=== PATIENT | female | born 1955 | race Caucasian/White ===

== ENCOUNTER 2020-02-22 22:24 | Inpatient (IN) | payer MEDICARE ==
[~2020-02-22] VITALS: Ht 165.1 cm; Wt 95.3 kg
[2020-02-22] MEDS ORDERED: LIPITOR10 MG PO (22:37)
[2020-02-22] MEDS ORDERED: LASIX20 MG (22:37)
[2020-02-22] MEDS ORDERED: PACERONE100 MG (22:37)
[2020-02-22] MEDS ORDERED: METFORMIN HCL500 M1 PO (22:38)
[2020-02-22] MEDS ORDERED: PROTONIX40 MG PO (22:38)
[2020-02-22 23:34] LABS: BASOPHILS 0.1 % (0-2); EOSINOPHILS 0 % (0-7); HEMOGLOBIN 8.9 g/dL (12-16); IMMATURE GRANULOCYTES 0.3 % (0-5); LYMPHOCYTES 3.1 % (15-50); MCH 27.8 pg (26.0-34.0); MCHC 30.7 g/dL (31.0-37.0); MCV 90.6 fL (80.0-100.0); MEAN PLATELET VOLUME 9.3 fL (7.4-10.4); MONOCYTES 2.9 % (2-11); NEUTROPHILS 93.6 % (40-80); PLATELET COUNT 286 10x3/uL (130-400); RDW 15.4 % (11.5-14.5); WBC 12.4 10x3/uL (4.8-10.8)
[2020-02-22 23:43] LABS: APTT 44.7 SECONDS (22.8-39.4); INR 1.44 (0.85-1.17); PROTIME 17.4 SECONDS (11.6-15.0)
[2020-02-23] VITALS (36 sets, daily range): BP systolic 83–147; BP diastolic 48–92; BMI 35.0
[2020-02-23 00:04] LABS: ALBUMIN 2.7 g/dL (3.4-5.0); ALKALINE PHOSPHATASE 65 U/L (30-120); ALT (SGPT) 295 U/L (10-68); BILIRUBIN - TOTAL 0.67 mg/dL (0.2-1.3); CALC OSMOLALITY 295 mosm/kg (275-300); CALCIUM 8.5 mg/dL (8.5-10.1); CARBON DIOXIDE 22.6 mmol/L (21.0-32.0); CHLORIDE - SERUM 99 mmol/L (98-107); CREATINE KINASE 105 UL (21-215); GLUCOSE 427 mg/dL (74-106); POTASSIUM - SERUM 3.8 mmol/L (3.5-5.1); PRO BNP 24477 pg/mL (0-125); PROTEIN - SERUM 7.5 g/dL (6.4-8.2); SODIUM 133 mmol/L (136-145); UREA NITROGEN 45 mg/dL (7-18); eGFR NON AFRICAN AMERICAN 27 mL/min (90-120)
[2020-02-23 00:05] LABS: TROPONIN-I 0.522 ng/mL (0.000-0.060)
--- NOTE | 2020-02-23 00:35 | NUR ---
PT INTUBATED AT THIS TIME. 7.5 ET TUBE, 23 AT THE LIP PT TOLERATED WELL. SEE EMAR.
--- NOTE | 2020-02-23 01:00 | NUR ---
PT RESTRAINED PER PROTOCOL SEE PAPER FORM.
[2020-02-23 02:29] LABS: BASOPHILS 0 % (0-2); EOSINOPHILS 0 % (0-7); HEMATOCRIT 29.1 % (36.0-48.0); IMMATURE GRANULOCYTES 0.3 % (0-5); LYMPHOCYTES 4.9 % (15-50); MCH 27.9 pg (26.0-34.0); MCHC 30.9 g/dL (31.0-37.0); MCV 90.1 fL (80.0-100.0); MONOCYTES 5.2 % (2-11); NEUTROPHILS 89.6 % (40-80); PLATELET COUNT 275 10x3/uL (130-400); RBC 3.23 10x6/uL (4.00-5.40); RDW 15.4 % (11.5-14.5); WBC 14.6 10x3/uL (4.8-10.8)
[2020-02-23 02:53] LABS: CKMB 4.3 U/L (0.0-3.6); CREATINE KINASE 133 UL (21-215)
[2020-02-23 02:56] LABS: TROPONIN-I 1.446 ng/mL (0.000-0.060)
--- NOTE | 2020-02-23 03:00 | NUR ---
PT ARRIVED VIA STRETHER WITH ADVANCED CLINICAL SPECIALIST AND RT. PT IS INTUBATED AND SEDATED. SHE WAS MOVED OVER SAFELY TO BED. VS ARE STABLE AT THIS TIME. PT RESTRAINTS ARE OBSERVED WITH BILAT HANDS PINK AND WARM. ALVAREZ OBSERVED HUNG BELOW BLADDER ADN DRAINING. LEVOPHED IS GOING AT 5MCG/MIN UPON ARRIVAL. PT REPONDS TO TOUCH AND VOICE AND RESONDS TO PAIN. FULL ASSESSMENT PERFORMED AND WILL DOC IN FLOWSHEET. HOB IS AT 35 DEGREES AND I ELEVATED HEELS OFF OF BED. BED IS LOW,SIDE RASILX2, BED ALARM ON AND CALL LIGHT WITHIN REACH. WILL CONINTUE TO MONITOR
--- NOTE | 2020-02-23 05:00 | NUR ---
PT IS RESTING IN BED AT THIS TIME MOVING AROUND. WILL INCREASE DIPRIVAN TO 10. VSS. RESTRAINTS OBVERSED. BED ISLOW,SIDE RAILSX2,CALL LGITH WITHIN REACH. WILL CONITNUE TO MONITOR
--- NOTE | 2020-02-23 07:00 | NUR ---
BEDSIDE REPORT RECEIVED. SHIFT ASSESSMENT COMPLETED PER FLOWSHEET, SEE FLOWSHEET FOR INFORMATION. PT INTUBATED AND SEDATED. BLOOD SUGAR 404, 12 UNITS OF INSULIN GIVEN, CALLED AND SPOKE WITH BANDAR GILLILAND, BOTH STATED JUST RECHECK IN AN HOUR. VSS. WILL CONT TO MONITOR.
--- NOTE | 2020-02-23 09:00 | NUR ---
PT INTUBATED AND SEDATED. NO ACUTE NEEDS OR DISTRESS NOTED AT THIS TIME. VSS. WILL CONT TO MONITOR.
--- NOTE | 2020-02-23 09:59 | NUR ---
SPOKE WITH ERICA PETERSON, SOME HISTORY RECEIVED, ERICA DOES NOT KNOW MUCH ABOUT HER MEDICAL HISTORY. UPDATE GIVEN. WILL CONT TO MONITOR.
--- NOTE | 2020-02-23 11:00 | NUR ---
REASSESSMENT COMPLETED PER FLOWSHEET, SEE FLOWSHEET FOR INFORMATION. PT RESTING IN BED INTUBATE AND SEDATED. VSS. ORAL CARE GIVEN PER COMFORT. WILL CONT TO MONITOR.
--- NOTE | 2020-02-23 13:00 | NUR ---
AT BEDSIDE, OGT PLACED PER . NEW ORDERS RECEIVED. STATES THAT PT GRABBED HIS HAND AND TRIED TO PULL HIM AWAY. CHANGED SEDATION TO FENTANYL AND VERSED. WILL CONT TO MONITOR.
--- NOTE | 2020-02-23 15:00 | NUR ---
REASSESSMENT COMPLETED PER FLOWSHEET, SEE FLOWSHEET FOR INFORMATION. PT RESTING IN BED INTUBATED AND SEDATED. VSS. WILL CONT TO MONITOR.
[2020-02-23 16:30] LABS: BILIRUBIN NEGATIVE (NEGATIVE); GLUCOSE 100 mg/dL (NEGATIVE); KETONE NEGATIVE (NEGATIVE); NITRITE NEGATIVE (NEGATIVE); UROBILINOGEN NORMAL (NORMAL)
--- NOTE | 2020-02-23 16:35 | NUR ---
MOIRA GA COLLECTED RESPIRATORY CULTURE. I COLLECTED A URINE SAMPLE FROM ALVAREZ. VSS. WILL CONT TO MONITOR.
[2020-02-23 16:37] LABS: CREATININE - URINE 159.2 mg/dL (30-125); PRO/CRE RATIO URINE 0.6 mg/g; PROTEIN - URINE 95.1 mg/dL (0.0-11.9)
--- NOTE | 2020-02-23 17:00 | NUR ---
PT RESTING INTUBATED AND SEDATED IN BED. PT RESTING IN BED, NO ACUTE NEEDS OR DISTRESS NOTED AT THIS TIME. VSS. WILL CONT TO MONITOR.
--- NOTE | 2020-02-23 20:19 | NUR ---
right eye started to bleed when patient was being bathed. cleaned off. sclera appeares to be yellow.
[2020-02-24] VITALS (22 sets, daily range): BP systolic 112–146; BP diastolic 68–85; Ht 165.1 cm; Wt 95.3 kg
[2020-02-24 05:34] LABS: INR 1.31 (0.85-1.17); PROTIME 16.2 SECONDS (11.6-15.0)
[2020-02-24 05:42] LABS: APTT 33.7 SECONDS (22.8-39.4)
[2020-02-24 05:43] LABS: D-DIMER-QUANTITATIVE 2.58 ug/mLFEU (0.20-0.54)
[2020-02-24 06:01] LABS: ALBUMIN 2.2 g/dL (3.4-5.0); ANION GAP 12.5 mmol/L (8-16); BASOPHILS 0 % (0-2); BILIRUBIN - TOTAL 0.64 mg/dL (0.2-1.3); CALCIUM 8.1 mg/dL (8.5-10.1); CARBON DIOXIDE 22.2 mmol/L (21.0-32.0); EOSINOPHILS 0 % (0-7); HEMATOCRIT 27.4 % (36.0-48.0); HEMOGLOBIN 8.4 g/dL (12-16); IMMATURE GRANULOCYTES 0.2 % (0-5); LYMPHOCYTES 2.8 % (15-50); MAGNESIUM - SERUM 1.7 mg/dL (1.8-2.4); MCH 27.6 pg (26.0-34.0); MCHC 30.7 g/dL (31.0-37.0); MCV 90.1 fL (80.0-100.0); MEAN PLATELET VOLUME 9.2 fL (7.4-10.4); MONOCYTES 2.8 % (2-11); NEUTROPHILS 94.2 % (40-80); PHOSPHOROUS 2.5 mg/dL (2.5-4.9); PLATELET COUNT 274 10x3/uL (130-400); POTASSIUM - SERUM 3.7 mmol/L (3.5-5.1); RBC 3.04 10x6/uL (4.00-5.40); RDW 15.7 % (11.5-14.5); VANCOMYCIN - RANDOM 16.6 ug/mL (10.0-20.0); WBC 12.1 10x3/uL (4.8-10.8)
[2020-02-24 06:03] LABS: CREATININE - SERUM 1.2 mg/dL (0.6-1.3); TROPONIN-I 1.067 ng/mL (0.000-0.060)
--- NOTE | 2020-02-24 07:00 | NUR ---
ASSESSMENT COMPLETE PER FLOWSHEET. IN ISOLATION FOR PUI.
--- NOTE | 2020-02-24 07:51 | NUR ---
DR ENWELL CONSULTED.
--- NOTE | 2020-02-24 09:00 | NUR ---
CONT TO MONITOR.
--- NOTE | 2020-02-24 11:00 | NUR ---
REASSESSED. CONT TO INTUBATE 40 PERCENT.
--- NOTE | 2020-02-24 15:00 | NUR ---
REASSESSED. FIO2 CONTINUED AT 40 PERCENT.
--- NOTE | 2020-02-24 17:00 | NUR ---
NO CHANGES NOTED. SR UP X 2. CALL LIGHT WITHIN REACH. CONTINUE TO MONITOR.
--- NOTE | 2020-02-24 19:13 | MORECARE ---
CASE MANAGEMENT DISCHARGE SUMMARY PATIENT: LEANDRA RESENDIZ UNIT: [id number] ADM DATE: 02/23/20 AGE: 64 : 57 SEX: F ROOM/BED: D.2312 AUTHOR: KAYLEIGH LERMA PHYSICIAN: REFERRING PHYSICIAN: LIV CONNER MD DATE OF SERVICE: 02/24/20 Discharge Plan Patient Name: LEANDRA RESENDIZ [facility] [facility] 1955 Planned Disposition: Anticipated Discharge Date: Discharge Date: Expected LOS: Initial Reviewer: [email or web address] Initial Review Date: 02/23/2020 Generated: 02/24/20 8:12 pm Comments DCP- Discharge Planning Updated by [email or web address]: Rhona Sauer on 02/24/20 6:[address] CM attempted to visit with patient regarding discharge planning. Patient is currently on the vent and no family available at this time. CM will try to contact family/ contact via phone for discharge plan. CM will continue to follow and assist as needed with discharge planning / needs. Patient Name: LEANDRA RESENDIZ Page [id number] at 1913 All edits/amendments must be made on the electronic document DICTATION DATE: 02/24/201911 LOG SAWYER: CONRAD 02/24/201911 RPT#: [id number] DC DATE: STATUS: ADM IN [facility] [address] [place] [address] END OF REPORT
--- NOTE | 2020-02-24 20:30 | NUR ---
chg bath given. linen change. sunctioned. turned. hr 50's. turned down propofol to 30. will continue to monitor
[2020-02-25] VITALS (24 sets, daily range): BP systolic 125–149; BP diastolic 71–106
--- NOTE | 2020-02-25 00:12 | NUR ---
2300- patient intubated sedated. see adl see reassesment. no new changes.
--- NOTE | 2020-02-25 01:41 | NUR ---
respiratory at bedside. no acute distress. light turned off. vital signs stable. will continue to monitor
--- NOTE | 2020-02-25 04:16 | NUR ---
reassessment completed. following electrolyte protocol replacement. will continue to monitor
--- NOTE | 2020-02-25 06:09 | NUR ---
called lab because no one came to draw lab on the patient. they stated they would send someone over to draw them
[2020-02-25 06:56] LABS: BASOPHILS 0 % (0-2); EOSINOPHILS 0 % (0-7); HEMATOCRIT 27.3 % (36.0-48.0); HEMOGLOBIN 8.5 g/dL (12-16); IMMATURE GRANULOCYTES 0.2 % (0-5); LYMPHOCYTES 3.4 % (15-50); MCH 27.4 pg (26.0-34.0); MCHC 31.1 g/dL (31.0-37.0); MEAN PLATELET VOLUME 9.3 fL (7.4-10.4); MONOCYTES 5.4 % (2-11); PLATELET COUNT 288 10x3/uL (130-400); RDW 15.7 % (11.5-14.5)
[2020-02-25 07:06] LABS: MCV 88.1 fL (80.0-100.0)
[2020-02-25 07:08] LABS: ALBUMIN 2.2 g/dL (3.4-5.0); BILIRUBIN - TOTAL 0.58 mg/dL (0.2-1.3); CALCIUM 8.1 mg/dL (8.5-10.1); CARBON DIOXIDE 26.3 mmol/L (21.0-32.0); CREATININE - SERUM 1.1 mg/dL (0.6-1.3); POTASSIUM - SERUM 3.3 mmol/L (3.5-5.1); PROTEIN - SERUM 6.6 g/dL (6.4-8.2); VANCOMYCIN - RANDOM 14.4 ug/mL (10.0-20.0)
--- NOTE | 2020-02-25 11:00 | NUR ---
EXTUBATED TO 3 LITERS. O2 SAT 100 PERCENT.
[2020-02-25 13:10] LABS: SPE - A/G RATIO 0.8 (0.7-1.7); SPE - ALPHA-1 GLOBULIN 0.3 g/dL (0.0-0.4); SPE - ALPHA-2 GLOBULIN 0.9 g/dL (0.4-1.0); SPE - GAMMA GLOBULIN 1.5 g/dL (0.4-1.8); SPE - M-SPIKE Note: g/dL (Not Observed); SPE - TOTAL PROTEIN 6.8 g/dL (6.0-8.5)
--- NOTE | 2020-02-25 15:03 | CN ---
PATIENT NAME:LEANDRA RESENDIZ MEDICAL RECORD: [id number] : 57 LOCATION:[place]OT[place].2312 ADMIT DATE: 02/23/20 ACCOUNT: [id number] CONSULTING PHYSICIAN: CHA NEWELL MD REFERRING PHYSICIAN: LIV CONNER MD DATE OF CONSULTATION: 02/24/2020 HISTORY OF PRESENT ILLNESS: A 64-year-old female transferred from [place] with sepsis, abnormal chest x-ray, hypotension, lactic acidosis, was found to have an elevation in cardiac enzymes consistent with NSTEMI. We are asked to see her concerning her cardiovascular history. Of note, she does apparently have a cardiac history of at least atrial fibrillation, on amiodarone therapy as well as dyslipidemia and diabetes. ALLERGIES: NONSTEROIDALS. MEDICATIONS: Typically include metformin, unknown dose; Protonix, unknown dose; Lasix, unknown dose; atorvastatin, unknown dose; Pacerone, unknown dose. SOCIAL HISTORY: Unobtainable due to the patient's factors. REVIEW OF SYSTEMS: Unobtainable due to the patient's factors. PHYSICAL EXAMINATION: GENERAL: Abated, in no acute distress. VITAL SIGNS: Blood pressure 120/74, pulse 71 and regular. HEENT: Normocephalic, atraumatic. NECK: No bruits noted. HEART: Regular. Questionable S4 gallop. LUNGS: Fairly good air excursion currently. ABDOMEN: Soft, nontender. EXTREMITIES: Pulses are well preserved, actually 2+ with no edema. IMPRESSION: Sepsis, diabetes mellitus, history of atrial fibrillation. Currently, rhythm appear to be stable. Cardiac enzymes are consistent with NSTEMI. Certainly has risk factors for a fixed obstructive disease, although cannot rule out a type 2 DC as well, continue current treatment. Check echocardiographic study for focal wall motion abnormalities. At some point in time, we will need evaluation of ischemic workup after giving the risk factors. Agree with holding amiodarone at this point with appearance of CT and chest x-ray in case of any amiodarone toxicity. If atrial arrhythmias occur, could consider something such as sotalol. Further recommendations based on clinical course. TRANSINT:[id number] Voice Confirmation ID: [id number] DOCUMENT ID: [id number] CHA NEWELL MD at 1509 CC: [id number] DICTATION DATE: 02/24/20 1044 ENVIRONMENTAL COORDINATOR: 02/24/20 1158 ADM IN [facility] [address] [facility] [place] [address]
--- NOTE | 2020-02-25 15:03 | EC ---
PATIENT:LEANDRA RESENDIZ DATE OF SERVICE: 02/23/20 SEX: F MEDICAL RECORD: [id number] DATE OF : [birth year] LOCATION:[place] [address] AGE OF PATIENT: 64 ADMISSION DATE: 02/23/20 REFERRING PHYSICIAN: INTERPRETING PHYSICIAN: CHA NEWELL MD ECHOCARDIOGRAM REPORT ECHO CHARGES 4 ECHO COMPLETE Date: 02/23/20 CLINICAL DIAGNOSIS: CHF ECHOCARDIOGRAPHIC MEASUREMENTS (adult normal given) AC root (d.<3.7cm) 3.3 cm LV Septum d (<1.2 cm> 1.6 cm Valve Excursion 1.4 cm LV Septum (systole) 1.7 cm Left Atria (s.<4.0cm> 4.8 cm LVPW d(<1.2cm) 1.2 cm RV (d.<2.3cm) 4.0 cm LVPW (sytole) 1.8 cm LV diastole(<5.6CM) 3.4 cm MV E-F(>70mm/sec) cm LV systole 1.2 cm LVOT Diameter 2.0 cm MV exc.(>10mm) cm Est.ejection fraction (50-75%) % DOPPLER: LVIT cm/sec A 76.0 cm/sec E 178.0 cm/sec LA cm/sec RVSP 41 mmHg LVOT 100 cm/sec AOP1/2T m/s Asc. Ao 137 cm/sec RVOT cm/sec RA cm/sec PA cm/sec AV Gradient Peak 7.51 mmHg AV Mean 4.22 mmHg AV Area 2.4 cm MV Gradient Peak 18.19mmHg MV Mean 5.72 mmHg MV Area cm COMMENTS: X Ray Technologist: 2 BRIAN JUSTIN Shear Operator Helper: 3 Dr. Curtis TAPE# PACS Pericardial Effusion N DATE OF SERVICE: Adequate 2D, color flow imaging, spectral Doppler, and M-Mode. LVH is present. LV internal dimensions are normal. Wall motion is normal. EF is greater than or equal to 55%. Aortic valve is sclerotic. No evidence of stenosis by Doppler interrogation. Left atrium is dilated at 4.8 cm. Mitral valve shows no prolapse. Mild MR. Right-sided chambers are grossly normal. Mild plus TR. ECHOCARDIOGRAM REPORT [id number] LEANDRA RESENDIZ TRANSINT:[id number] Voice Confirmation ID: [id number] DOCUMENT ID: [id number] CHA NEWELL MD at 1503 CC: [id number] DICTATION DATE: 02/24/20 1048 OFFICER CAPTAIN: 02/24/20 1200 ADM IN [place] [id number] [place] [id number]
--- NOTE | 2020-02-25 17:00 | NUR ---
CONSUMED 100 PERCENT OF CLEAR LIQUIDS. VOICES NO CO AT TIME.
--- NOTE | 2020-02-25 23:51 | NUR ---
NO BM AT THIS TIME TO COLLECT STOOL SPECIMENT
[2020-02-26] VITALS (18 sets, daily range): BP systolic 16–152; BP diastolic 71–89
--- NOTE | 2020-02-26 02:43 | NUR ---
patient resting. water provided. no acute distress
--- NOTE | 2020-02-26 05:03 | NUR ---
patient resting. drink provided. turned onto back. will continue to monitor
[2020-02-26 05:51] LABS: BASOPHILS 0 % (0-2); EOSINOPHILS 0 % (0-7); HEMATOCRIT 29.2 % (36.0-48.0); HEMOGLOBIN 9.1 g/dL (12-16); IMMATURE GRANULOCYTES 0.3 % (0-5); LYMPHOCYTES 2.1 % (15-50); MCH 27.5 pg (26.0-34.0); MCHC 31.2 g/dL (31.0-37.0); MCV 88.2 fL (80.0-100.0); MONOCYTES 3.7 % (2-11); NEUTROPHILS 93.9 % (40-80); PLATELET COUNT 309 10x3/uL (130-400); RBC 3.31 10x6/uL (4.00-5.40); RDW 15.7 % (11.5-14.5); WBC 8.7 10x3/uL (4.8-10.8)
[2020-02-26 06:05] LABS: ALBUMIN 2.2 g/dL (3.4-5.0); ANION GAP 11.7 mmol/L (8-16); BILIRUBIN - TOTAL 0.55 mg/dL (0.2-1.3); CALCIUM 8.4 mg/dL (8.5-10.1); CARBON DIOXIDE 23.5 mmol/L (21.0-32.0); POTASSIUM - SERUM 3.2 mmol/L (3.5-5.1); PROTEIN - SERUM 6.9 g/dL (6.4-8.2)
--- NOTE | 2020-02-26 11:12 | NUR ---
Nutrition follow-up: Diet advanced to Regular consistent CHO Labs reviewed; glucose with better control Wt: 209# RDN following.
--- NOTE | 2020-02-26 13:30 | NUR ---
PT RESTING AT THIS TIME, VSS, CALL LIGHT IN REACH
--- NOTE | 2020-02-26 15:00 | NUR ---
PT RESTING COMFORTABLY AT THIS TIME, VSS
--- NOTE | 2020-02-26 17:04 | NUR ---
PT UP EATING DINNER, NO OTHER NEEDS NOTED
--- NOTE | 2020-02-27 01:44 | NUR ---
1330- patient stated she had difficulty having a bm
--- NOTE | 2020-02-27 01:44 | NUR ---
small bm at this time.
--- NOTE | 2020-02-27 01:45 | NUR ---
2100- patient denied a sponge bath. "i will be going to the floor where i have my own shower"
[2020-02-27 02:00] VITALS: BP 154/89
[2020-02-27 05:05] LABS: BASOPHILS 0 % (0-2); EOSINOPHILS 0 % (0-7); HEMATOCRIT 30.8 % (36.0-48.0); HEMOGLOBIN 9.7 g/dL (12-16); IMMATURE GRANULOCYTES 0.2 % (0-5); LYMPHOCYTES 3.1 % (15-50); MCH 27.8 pg (26.0-34.0); MCHC 31.5 g/dL (31.0-37.0); MCV 88.3 fL (80.0-100.0); MEAN PLATELET VOLUME 8.8 fL (7.4-10.4); MONOCYTES 3.5 % (2-11); NEUTROPHILS 93.2 % (40-80); PLATELET COUNT 323 10x3/uL (130-400); RBC 3.49 10x6/uL (4.00-5.40); RDW 15.5 % (11.5-14.5); WBC 9.5 10x3/uL (4.8-10.8)
[2020-02-27 05:20] LABS: ALBUMIN 2.5 g/dL (3.4-5.0); ANION GAP 10.9 mmol/L (8-16); BILIRUBIN - TOTAL 0.7 mg/dL (0.2-1.3); CALCIUM 8.2 mg/dL (8.5-10.1); CARBON DIOXIDE 26.5 mmol/L (21.0-32.0); CREATININE - SERUM 1.1 mg/dL (0.6-1.3); POTASSIUM - SERUM 3.4 mmol/L (3.5-5.1); PROTEIN - SERUM 7.1 g/dL (6.4-8.2)
[2020-02-27 06:28] VITALS: BP 154/89
[2020-02-27 07:00] VITALS: BP 149/87
--- NOTE | 2020-02-27 07:15 | NUR ---
REPORT RECIEVED, SHIFT ASSESSMENT COMPLETE, PT IS CONFUSED TO SITUATION, ON 3L NC WITH 97% O2 SAT. ALL PPP, VSS, CALL LIGHT IN REACH
--- NOTE | 2020-02-27 09:15 | NUR ---
NO NEEDS NOTED AT THIS TIME, WILL CON'T TO MONITOR
[2020-02-27 11:00] VITALS: BP 126/66
--- NOTE | 2020-02-27 11:20 | NUR ---
DR. KUMAR AT BEDSIDE, UPDATE GIVEN
[2020-02-27 15:00] VITALS: BP 122/59
--- NOTE | 2020-02-27 15:30 | NUR ---
OT NOTE: PT COMPLETED BED MOB TASKS WITH MIN A. PT COMPLETD LB HYGIENE WITH MOD/MAX A. THANK YOU,CHERELLE OZUNA
[2020-02-27 20:00] VITALS: BP 108/63
[2020-02-28] VITALS: BP 88/55
[2020-02-28 04:00] VITALS: BP 113/54
[2020-02-28 05:18] LABS: BASOPHILS 0 % (0-2); EOSINOPHILS 3.9 % (0-7); HEMATOCRIT 26.7 % (36.0-48.0); HEMOGLOBIN 8.2 g/dL (12-16); IMMATURE GRANULOCYTES 0.3 % (0-5); LYMPHOCYTES 8.1 % (15-50); MCH 27.2 pg (26.0-34.0); MCHC 30.7 g/dL (31.0-37.0); MCV 88.4 fL (80.0-100.0); MEAN PLATELET VOLUME 8.6 fL (7.4-10.4); MONOCYTES 9.6 % (2-11); NEUTROPHILS 78.1 % (40-80); PLATELET COUNT 285 10x3/uL (130-400); RBC 3.02 10x6/uL (4.00-5.40); RDW 15.7 % (11.5-14.5); WBC 9.5 10x3/uL (4.8-10.8)
--- NOTE | 2020-02-28 06:02 | NUR ---
ASSESSED AT THE TIME PT WAS RECEIVED FROM ICU AT THE BEGINNING OF THE SHIFT. SHE HAS HAD O2 ON AT 2 LITERS THROU OUT THE NIGHT. SHE HAS A ALVAREZ AND WAS INCONT. ONCE DURING THE NIGHT WITH STOOL. SHE HAS SWALLOWED WELL FOR MEDS AND SHE IS ALERT AND ORIENTED WITH JUST A LITTLE CONFUSION AT TIMES. DURING HER BLOOD SUGAR TAKEN FOR THE 0245 TIME SHE CAME DOWN TO 65. AT THIS TIME SHE WAS GIVEN SNACKS WHICH SHE ATE WELL AND THE NEXT BLOOD SUGAR THIS MORNING WAS 152. THERE IS SOME REDNESS ON HER COCCYX. WE HAVE TURNED HER FREQUENTLY AND SHE IS ABLE TO HELP.
[2020-02-28 06:10] LABS: ANION GAP 6.7 mmol/L (8-16); BILIRUBIN - TOTAL 0.45 mg/dL (0.2-1.3); CALCIUM 7.2 mg/dL (8.5-10.1); CARBON DIOXIDE 28.3 mmol/L (21.0-32.0); CREATININE - SERUM 1.4 mg/dL (0.6-1.3); PROTEIN - SERUM 5.6 g/dL (6.4-8.2)
--- NOTE | 2020-02-28 09:00 | NUR ---
ALERT AND ORIENTED X4 LUNGS DIMINISHED X4 ANTERIOR AND DENIES ANY DYSPNEA. 022L N/C. ALVAREZ CATH PATENT WITH CLEAR ELIAS URINE. IV TO LEFT F/A W/O ANY S/S OF INFECTION/INFILTRATION.OPEN AREA TO ANTERIOR PLANTER ASPECT OF RT. FOOT. DENIES ANY PAIN OR DISCOMFORT AT THIS TIME BLOOD SUGARS MONITORED PER ORDERS. PT HYPOKALEMIC WITH POTASSIUM REPLACED PER PROTOCOL.
[2020-02-28 10:29] VITALS: BP 130/63
--- NOTE | 2020-02-28 13:16 | NUR ---
OT NOTE: PT DOING MUCH BETTER TODAY. STATES THAT SHE FEELS BETTER AFTER GETTING SOME SLEEP. BED MOB WITH MIN ASSIST; EOB SITTING WITH SPV; ABLE TO PERFORM UE/LE AROM EXS WITH GOOD SITTING BALANCE; AMB INTO HALLWAY WITH MIN ASSIST X 2 WITH WALKER, 02, IV, AND VERY SLOW PACE, HOWEVER, SHE DID AMB APPROX 130 FT TODAY.. VERY FATIGUED UPON RETURN TO ROOM. STATED THAT SHE WAS TOO TIRED TO SIT UP IN CHAIR. PT WAS ABLE TO PERFORM SIMPLE GROOMING TASKS IN SEATED POSITION; MOD ASSIST TO MARCELA SOCKS AND MIN ASSIST WITH GOWN. ELGIN ROACH, OTR/L [phone]
--- NOTE | 2020-02-28 13:17 | NUR ---
Nutrition education for DMT2: Pt eating lunch at time of RDN visit. Reviewed CHO containing foods and the affect CHO have on glucose. Pt was able to identify all CHO on meal tray. Pt reports she has had education before. Pt with fair understanding of information provided. Provided pt with printed diet information and RDN name and phone number. RDN will be available if needed. Thank you for the consult.
--- NOTE | 2020-02-28 13:31 | NUR ---
OT NOTE: PT COMPLETED SUPINE TO SIT WITH MIN A. PT COMPLETED ADL MOB WITH CGA. PT COMPLETED UB HYGIENE TASKS WITH SETUP. [id number] THANK YOU,CHERELLE OZUNA
[2020-02-28 13:47] VITALS: BP 147/69
--- NOTE | 2020-02-28 13:47 | NUR ---
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 She states she doesn't remember how it started or how long it has been there, but she goes to the wound clinic in [place], [place] for treatment. The wound measures 1cm x 2cm x 0.5cm. Wound care will recommend medihoney gel be applied to wound bed with zinc oxide paste on edges. Will continue monitoring.
[2020-02-28 18:03] VITALS: BP 129/75; BP 179/69
[2020-02-28 20:00] VITALS: BP 160/80
[2020-02-29 00:01] VITALS: BP 157/78
[2020-02-29 05:16] VITALS: BP 141/60
[2020-02-29 06:21] LABS: BASOPHILS 0 % (0-2); EOSINOPHILS 0.6 % (0-7); HEMATOCRIT 27.1 % (36.0-48.0); HEMOGLOBIN 8.4 g/dL (12-16); IMMATURE GRANULOCYTES 0.6 % (0-5); LYMPHOCYTES 7.6 % (15-50); MCH 27.4 pg (26.0-34.0); MCV 88.3 fL (80.0-100.0); MEAN PLATELET VOLUME 8.9 fL (7.4-10.4); MONOCYTES 9.2 % (2-11); PLATELET COUNT 313 10x3/uL (130-400); RBC 3.07 10x6/uL (4.00-5.40); RDW 15.7 % (11.5-14.5); WBC 10.1 10x3/uL (4.8-10.8)
[2020-02-29 06:34] LABS: CALCIUM 7.8 mg/dL (8.5-10.1); CARBON DIOXIDE 27.2 mmol/L (21.0-32.0); CREATININE - SERUM 1.1 mg/dL (0.6-1.3); MAGNESIUM - SERUM 1.8 mg/dL (1.8-2.4); PHOSPHOROUS 1.9 mg/dL (2.5-4.9); POTASSIUM - SERUM 3.2 mmol/L (3.5-5.1)
[2020-02-29 10:39] VITALS: BP 148/79
[2020-02-29 15:19] VITALS: BP 102/58
[2020-02-29 18:37] VITALS: BP 118/80
--- NOTE | 2020-02-29 19:10 | NUR ---
PATIENT ALERT AND ORIENTED, LYING IN BED. NO SIGNS OF ACUTE DISTRESS NOTED AT THIS TIME. PATIENT STATES SHE WOULD LIKE SOME TYLENOL, PAIN LEVEL OF A 6. L FA IV, NS@75, NO REDNESS OR SWELLING. BED RAILS X2. BEDSIDE TABLE AND CALL LIGHT WITHIN REACH.
[2020-02-29 20:21] VITALS: BP 139/69
[2020-03-01 00:25] VITALS: BP 140/72
[2020-03-01 04:42] VITALS: BP 102/63
--- NOTE | 2020-03-01 05:18 | NUR ---
CHANGED DRESSING ON R FOOT.
[2020-03-01 06:23] LABS: ANION GAP 6.9 mmol/L (8-16); CALCIUM 7.8 mg/dL (8.5-10.1); CARBON DIOXIDE 29.3 mmol/L (21.0-32.0); CREATININE - SERUM 1.3 mg/dL (0.6-1.3); MAGNESIUM - SERUM 1.8 mg/dL (1.8-2.4); POTASSIUM - SERUM 3.2 mmol/L (3.5-5.1)
[2020-03-01 06:26] LABS: PHOSPHOROUS 2.8 mg/dL (2.5-4.9)
[2020-03-01 06:39] LABS: HEMATOCRIT 28.4 % (36.0-48.0); HEMOGLOBIN 8.8 g/dL (12-16); LYMPHOCYTES 10.8 % (15-50); MCH 27.8 pg (26.0-34.0); MCV 89.9 fL (80.0-100.0); NEUTROPHILS 72.1 % (40-80); PLATELET COUNT 356 10x3/uL (130-400); RBC 3.16 10x6/uL (4.00-5.40); RDW 16.4 % (11.5-14.5); WBC 8.6 10x3/uL (4.8-10.8)
[2020-03-01 08:44] VITALS: BP 165/85
--- NOTE | 2020-03-01 09:21 | NUR ---
PT ALERT AND ORIENTED UPON ENTERING. IV TO THE LEFT FOREARM, ROOM AIR. ASSISTED PT TO THE BED SIDE COMMODE. ADMINISTERED MEDICATION, PRN TYLENOL ALSO FOR PAIN IN HIP OF 610. SITUATED COMFORTABLY BACK IN BED. DENIES ANY NEEDS. BED IN LOWEST POSITION, BED RAILS X2, CALL LIGHT WITHIN REACH. WILL CONTINUE TO MONITOR.
--- NOTE | 2020-03-01 09:54 | NUR ---
REMOVED IV FROM LEFT FOREARM DUE TO INFILTRATION, COVERED WITH GAUZE AND TAPE. RESITED IV TO RIGHT UPPER ARM, TOLERATED WELL. IV MEDICATIONS AND FLUIDS RESTARTED. RESTING COMFORTABLY IN BED. DENIES ANY NEEDS. BED IN LOWEST POSITION, BED RAILS X2, CALL LIGHT WITHIN REACH. WILL CONTINUE TO MONITOR.
[2020-03-01] MEDS ORDERED: PREDNISONE10 MG PO (11:09)
--- NOTE | 2020-03-01 12:04 | NUR ---
PT RESTING SUPINE IN BED UPON ENETERING, ALERT AND ORIENTED X4. ADMINISTERED MEDICATION AT THIS TIME, REFUSED ROBITUSSIN. ASSESSED SUGAR, 246. GAVE 8 UNITS INSULIN PER SLIDING SCALE. TREATED LOW POTASSIUM WITH PO K-DUR. DENIES ANY NEEDS AT THIS TIME. BED IN LOWEST POSITION, BED RAILS X2, CALL LIGHT WITHIN REACH. WILL CONTINUE TO MONITOR.
[2020-03-01 12:10] VITALS: BP 115/49; BP 161/80
--- NOTE | 2020-03-01 14:53 | NUR ---
HUNG IV ANTIBIOTICS. ASSESSED BLOOD SUGAR. GAVE 8 UNITS INSULIN PER SLIDING SCALE FOR SUGAR OF 203. ASSISTED PT TO BEDSIDE COMMODE, SITUATED COMFORTABLY IN BED. ASSESSMENT PERFORMED AT THIS TIME. DENIES ANY NEEDS. BED IN LOWEST POSITION, BED RAILS X2, CALL LIGHT WITHIN REACH. WILL CONTINUE TO MONITOR.
[2020-03-01] MEDS ORDERED: LISINOPRIL10 MG PO (15:05)
[2020-03-01] MEDS ORDERED: BUSPAR10 MG PO (15:06)
[2020-03-01] MEDS ORDERED: JANUVIA100 MG PO (15:06)
[2020-03-01] MEDS ORDERED: XARELTO20 MG PO (15:06)
[2020-03-01] MEDS ORDERED: SYNTHROID100 MCG PO (15:06)
[2020-03-01] MEDS ORDERED: EFFEXOR XR150 MG PO (15:07)
[2020-03-01] MEDS ORDERED: VITAMIN D 2 PO (15:08)
--- NOTE | 2020-03-01 15:16 | NUR ---
CALLED DR LORRAINE FINN AMIODARONE FOR D/C. HE RECOMMEND CONTINUE TO HOLD.
--- NOTE | 2020-03-01 16:42 | NUR ---
PT HAS SIGNED ALL NECESSARY DISCHARGE PAPERWORK. IV FROM RIGHT UPPER ARM REMOVED WITH CATHETER TIP INTACT, COVERED SITE WITH GAUZE AND TAPE, TOLERATED WELL. DENIES ANY NEEDS. WAITING ON RIDE.
--- NOTE | 2020-03-01 18:26 | NUR ---
I have reviewed this patient and I concur with the Shift Assessment completed by the Licensed Practical Nurse today this shift.
--- NOTE | 2020-03-01 18:40 | NUR ---
REFUSED ROGERITUSSIN. ASSESSED BLOOD SUGAR. GAVE 10 UNITS PER SLIDING SCALE FOR SUGAR OF 255. SITTING IN BEDSIDE CHAIR, RECIEVING BREATHING TREATMENT. DENIES ANY NEEDS. WAITING ON RIDE. WILL CONTINUE TO MONITOR.
--- NOTE | 2020-03-01 23:03 | MORECARE ---
CASE MANAGEMENT DISCHARGE SUMMARY PATIENT: LEANDRA RESENDIZ UNIT: [id number] ADM DATE: 02/23/20 AGE: 64 : 57 SEX: F ROOM/BED: D.2211 AUTHOR: KAYLEIGH LERMA PHYSICIAN: REFERRING PHYSICIAN: LIV CONNER MD DATE OF SERVICE: 03/01/20 Discharge Plan Patient Name: LEANDRA RESENDIZ Facility: [facility]:[place] : 1955 Planned Disposition: Home with Home Health Anticipated Discharge Date: Discharge Date: 03/01/2020 Expected LOS: Initial Reviewer: [email or web address] Initial Review Date: 02/23/2020 Generated: 03/02/20 12:02 am DCP- Discharge Planning Updated by [email or web address]: Rhona Sauer on 02/24/20 6:[address] CM attempted to visit with patient regarding discharge planning. Patient is currently on the vent and no family available at this time. CM will try to contact family/ contact via phone for discharge plan. CM will continue to follow and assist as needed with discharge planning / needs. DCPIA - Discharge Planning Initial Assessment Updated by [email or web address]: Rhona Sauer on 03/01/20 11:00 pm * Is the patient Alert and Oriented? Yes * How many steps to enter\exit or inside your home? RAMP * PCP * Pharmacy [facility] [place] * Preadmission Environment Home with Family * ADLs Independent * Equipment Walker * List name and contact numbers for known caregivers / representatives who currently or will assist patient after discharge: CASEY PETERSON [facility] -[phone], * Verbal permission to speak to the caregivers and representatives has been obtained from the patient. Yes * Community resources currently utilized Home Health * Please name any agencies selected above. [facility] * Additional services required to return to the preadmission environment? No * Can the patient safely return to the preadmission environment? Yes * Has this patient been hospitalized within the prior 30 days at any hospital? No Last DP export: 02/24/20 6:13 p Patient Name: LEANDRA RESENDIZ Page [id number] at 2303 All edits/amendments must be made on the electronic document DICTATION DATE: 03/01/202301 MAILROOM ASSOCIATE: CONRAD 03/01/202301 RPT#: [id number] DC DATE:03/01/20 STATUS: DIS [facility] [address] [place] [address] END OF REPORT
--- NOTE | 2020-03-01 23:10 | MORECARE ---
CASE MANAGEMENT DISCHARGE SUMMARY PATIENT: LEANDRA RESENDIZ UNIT: [id number] ADM DATE: 02/23/20 AGE: 64 : 57 SEX: F ROOM/BED: D.2211 AUTHOR: MARIA GUADALUPE,DOC PHYSICIAN: REFERRING PHYSICIAN: LIV CONNER MD DATE OF SERVICE: 03/01/20 Discharge Plan Patient Name: LEANDRA RESENDIZ Facility: [facility]:[place] : 1955 Planned Disposition: Home with Home Health Anticipated Discharge Date: Discharge Date: 03/01/2020 Expected LOS: Initial Reviewer: [email or web address] Initial Review Date: 02/23/2020 Generated: 03/02/20 12:10 am Comments DCP- Discharge Planning Updated by [email or web address]: Rhona Sauer on 03/01/20 10:[address] Patient Name: LEANDRA RESENDIZ Admission Status: ER Accout number: [id number] Admission Date: 02-23-2020 : 1955 Admission Diagnosis:SEPSIS, UNSPECIFIED ORGANISM Attending: LIV CONNER Current LOS: 7 Anticipated DC Date: Planned Disposition: Home with Home Health Primary Insurance: [facility] [employer] Discharge Planning Comments: CM met with patient to complete initial dc planning assessment. CM educated patient on the CM role and verbal consent given by patient to complete assessment. Patient lives at home with family. Patient is independent. At discharge patient plans to return home and feels this is a safe discharge. CM discussed availability of home health, rehab services, and medical equipment. Patient has [facility] and plans to resume. Patient will have family to transport home. Patient denied known discharge needs at this time. D/C IMM signed 03/01/20 @ 1240. CM will continue to follow and will assist as needed with dc plans/needs. Base Cloth Inspector: Rhona Sauer DCP- Discharge Planning Updated by [email or web address]: Rhona Sauer on 02/24/20 6:[address] CM attempted to visit with patient regarding discharge planning. Patient is currently on the vent and no family available at this time. CM will try to contact family/ contact via phone for discharge plan. CM will continue to follow and assist as needed with discharge planning / needs. DCPIA - Discharge Planning Initial Assessment Updated by [email or web address]: Rhona Sauer on 03/01/20 11:00 pm * Is the patient Alert and Oriented? Yes * How many steps to enter\exit or inside your home? RAMP * PCP * Pharmacy [facility] * Preadmission Environment Home with Family * ADLs Independent * Equipment Walker * List name and contact numbers for known caregivers / representatives who currently or will assist patient after discharge: CASEY SCHWARTZ [facility] -[phone], * Verbal permission to speak to the caregivers and representatives has been obtained from the patient. Yes * Community resources currently utilized Home Health * Please name any agencies selected above. [facility] * Additional services required to return to the preadmission environment? No * Can the patient safely return to the preadmission environment? Yes * Has this patient been hospitalized within the prior 30 days at any hospital? No Last DP export: 03/01/20 10:03 p Patient Name: LEANDRA RESENDIZ Page [id number] at 2310 All edits/amendments must be made on the electronic document DICTATION DATE: 03/01/202309 ENGINEER STATION MAINLINE: CONRAD 03/01/202309 RPT#: [id number] DC DATE:03/01/20 STATUS: DIS IN [facility] [address] [place] [address] END OF REPORT
--- NOTE | 2020-03-01 23:23 | MORECARE ---
CASE MANAGEMENT DISCHARGE SUMMARY PATIENT: LEANDRA RESENDIZ UNIT: [id number] ADM DATE: 02/23/20 AGE: 64 : 57 SEX: F ROOM/BED: D.2211 AUTHOR: MARIA GUADALUPE,DOC PHYSICIAN: REFERRING PHYSICIAN: LIV CONNER MD DATE OF SERVICE: 03/01/20 Discharge Plan Patient Name: LEANDRA RESENDIZ Facility: [facility]:[place] : 1955 Planned Disposition: Home with Home Health Anticipated Discharge Date: Discharge Date: 03/01/2020 Expected LOS: Initial Reviewer: [email or web address] Initial Review Date: 02/23/2020 Generated: 03/02/20 12:22 am Comments DCP- Discharge Planning Updated by [email or web address]: Rhona Sauer on 03/01/20 10:[address] CM FAXED D/C RECORDS TO [facility] [place] DCP- Discharge Planning Updated by [email or web address]: Rhona Sauer on 03/01/20 10:[address] Patient Name: LEANDRA RESENDIZ Admission Status: ER Accout number: [id number] Admission Date: 02-23-2020 : 1955 Admission Diagnosis:SEPSIS, UNSPECIFIED ORGANISM Attending: LIV CONNER Current LOS: 7 Anticipated DC Date: Planned Disposition: Home with Home Health Primary Insurance: [facility] [employer] Discharge Planning Comments: CM met with patient to complete initial dc planning assessment. CM educated patient on the CM role and verbal consent given by patient to complete assessment. Patient lives at home with family. Patient is independent. At discharge patient plans to return home and feels this is a safe discharge. CM discussed availability of home health, rehab services, and medical equipment. Patient has [facility] and plans to resume. Patient will have family to transport home. Patient denied known discharge needs at this time. D/C IMM signed 03/01/20 @ 1240. CM will continue to follow and will assist as needed with dc plans/needs. Prototype Special Build: Rhona Sauer DCP- Discharge Planning Updated by [email or web address]: Rhona Sauer on 02/24/20 6:[address] CM attempted to visit with patient regarding discharge planning. Patient is currently on the vent and no family available at this time. CM will try to contact family/ contact via phone for discharge plan. CM will continue to follow and assist as needed with discharge planning / needs. DCPIA - Discharge Planning Initial Assessment Updated by JAYY: Rhona Sauer on 03/01/20 11:00 pm * Is the patient Alert and Oriented? Yes * How many steps to enter\exit or inside your home? RAMP * PCP * Pharmacy [facility] [place] * Preadmission Environment Home with Family * ADLs Independent * Equipment Walker * List name and contact numbers for known caregivers / representatives who currently or will assist patient after discharge: CASEY PETERSON - -[phone], * Verbal permission to speak to the caregivers and representatives has been obtained from the patient. Yes * Community resources currently utilized Home Health * Please name any agencies selected above. [facility] * Additional services required to return to the preadmission environment? No * Can the patient safely return to the preadmission environment? Yes * Has this patient been hospitalized within the prior 30 days at any hospital? No External Providers External Provider: [facility] [place] Next Contact Date: Service Request Date: Service Type: Resolution: Reviewer: Comments: Coverage Notice Reviewer: [email or web address] Sam Sauer Notice Issued Date-Time: 03/01/2020 12:40 Notice Type: IM Discharge Notice Notice Delivered To: Patient Relationship to Patient: Self Surveillance Manager Name: Delivery Method: HAND - Hand Delivered Dory Days: Prior Verbal Notification: Recipient Understood Notice: Yes Recipient Signature: Yes Med Rec Note Co-signed by Attending: Coverage Notice Comment: Reviewer: [email or web address] Sam Sauer Notice Issued Date-Time: 03/01/2020 12:40 Notice Type: Patient Choice Letter Notice Delivered To: Patient Relationship to Patient: Self Surveillance Manager Name: Delivery Method: HAND - Hand Delivered Dory Days: Prior Verbal Notification: Recipient Understood Notice: Yes Recipient Signature: Yes Med Rec Note Co-signed by Attending: Coverage Notice Comment: LETICIA Newberry DP export: 03/01/20 10:10 p Patient Name: LEANDRA RESENDIZ Page [id number] at 2323 All edits/amendments must be made on the electronic document DICTATION DATE: 03/01/202321 MARINE OPERATIONS COORDINATOR: CONRAD 03/01/202321 RPT#: [id number] DC DATE:03/01/20 STATUS: DIS IN [facility] [address] [place] [place] [address] END OF REPORT
== END 2020-03-01 20:00 | disposition home health service (06) | DRG 871 ==
LOC: D.ER 22:24 → D.ICU 02-23 01:58 → D.MS 02-27 19:09
PROVIDERS: Emergency Medicine; Family Medicine; Internal Medicine Nephrology; Internal Medicine Pulmonary Disease; ADMIT Emergency Medicine; ATTEND Emergency Medicine
PROC: 5A1945Z Respiratory Ventilation, 24-96 Consecutive Hours (ICD-10-PCS; principal; 2020-02-23)
DX: A41.9 Sepsis, unspecified organism (principal); J96.01 Acute respiratory failure with hypoxia; J18.9 Pneumonia, unspecified organism; I21.4 Non-ST elevation (NSTEMI) myocardial infarction; I50.31 Acute diastolic (congestive) heart failure; N17.9 Acute kidney failure, unspecified; E87.1 Hypo-osmolality and hyponatremia; E83.42 Hypomagnesemia; I11.0 Hypertensive heart disease with heart failure; E78.5 Hyperlipidemia, unspecified; I48.91 Unspecified atrial fibrillation; I25.10 Atherosclerotic heart disease of native coronary artery without angina pectoris; E11.40 Type 2 diabetes mellitus with diabetic neuropathy, unspecified; D64.9 Anemia, unspecified; K21.9 Gastro-esophageal reflux disease without esophagitis